=== PATIENT | male | born 1965 | race African-American/Black ===

== ENCOUNTER 2019-01-10 21:38 | Emergency (ER) | payer MEDICARE, MEDICAID ==
[2019-01-10 22:01] VITALS: BP 147/105
== END 2019-01-10 22:56 | disposition left against medical advice (07) ==
LOC: ER 21:38
DX: Z53.21 Procedure and treatment not carried out due to patient leaving prior to being seen by health care provider (principal)

== ENCOUNTER → 2019-01-24 | Outpatient (CLI) | payer MEDICARE, MEDICAID ==
--- NOTE | 2019-01-25 08:23 | XCELERA REPORT ---
[address] [address] Lower Extremity Arterial Evaluation Name: JOHNATHON CHINCHILLA Age: 54 yrs Gender: Male : 1965 Patient Status: Outpatient Patient Location: [facility] Study Date: 01/24/2019 01:12 PM Procedure: A color flow and duplex scan of the lower extremity arteries was performed bilaterally with velocity and waveform anaylsis. Ankle brachial indicies performed. Reason For Study: PVD Ordering Physician: MILLER SALINAS Performed By: Wilma Briceño Measurements and Calculations Right Left LEPIDOPTERIST PSV 135.3 95.5 cm/sec Prox PFA PSV -92.9 92.4 cm/sec Prox SFA PSV 132.7 58.5 cm/sec Mid SFA PSV -171.9 -77.6 cm/sec Dist SFA PSV -77.2 -157.1cm/sec Prox Pop A PSV 165.0 cm/sec Dist Pop A PSV -41.5 cm/sec Mid WANG PSV -26.1 -17.3 cm/sec Mid ABRADING MACHINE TENDER PSV 56.2 26.4 cm/sec Narciso Pedis PSV 35.2 30.2 cm/sec Right Side Arterial Evaluation Normal velocity and triphasic waveforms noted in the Common Femoral artery. Biphasic with normal velocity, spectral broadening in the Popliteal and to the Posterior Tibial, low velocity in the Anterior Tibial . Ankle Brachial index 1.5. Left Side Arterial Evaluation Normal velocity and triphasic waveforms noted in the Common Femoral artery. Biphasic with low velocity, spectral broadening in the Popliteal and to the Posterior Tibial, low velocity, monophasic in the Anterior Tibial . Ankle Brachial index 1.2. Interpretation Summary Moderate hemodynamically significant lesions in the bilateral lower extremities, on duplex imaging, at rest. No focal stenosis identified, suggestion of significant disease in the Femoral artey, sequentially in the Anterior Tibials, bilaterally. JULIA's are normal, suggesting no significant obstruction. This is discordant in comparison to the duplex findings, clinical correlation advised. : MILLER SALINAS > Robbie Hammond
== END ==
LOC: SP 12:56
PROVIDERS: ATTEND Podiatrist Primary Podiatric Medicine
DX: I73.9 Peripheral vascular disease, unspecified (principal)
CPT/HCPCS: 93925

== ENCOUNTER 2019-02-05 19:13 | Emergency (ER) | payer MEDICARE, MEDICAID ==
[2019-02-05] MEDS ORDERED: IPRATROPIUM/ALBUTEROL 0.5-2.5 MG/3 ML AMPUL NEB ONE (19:45)
--- NOTE | 2019-02-05 19:45 | ER Document Report ---
ED Medical Screen (RME) - General Chief Complaint: Chest Congestion Stated Complaint: EYE PAIN, CONGESTION AND PAIN Time Seen by Provider: 02/05/19 19:41 Primary Care Provider: MILLER SALINAS DPM [Primary Care Provider] - Follow up as needed TRAVEL OUTSIDE OF THE [place] IN LAST 30 DAYS: No - HPI Notes: 02/05/19 19:42 Patient is a 54-year-old male with a history of A. fib (on Eliquis), hypertension, end-stage renal disease and on dialysis every Wednesday/Wednesday/Wednesday (but had dialysis yesterday), tobacco abuse/current smoker who presents complaining of chest congestion and coughing up green sputum with chest tightness and intermittent chest pains. Patient states that the pain is primarily with cough. He is also had red watery eyes with matting. Patient states that his symptoms started over the last couple days. Patient has also noticed some fatigue and weakness. Denies BERRY, fever, neck pain, Abd pain, n/v/d, dysuria, back pain, or rash. I have treated and performed a rapid initial assessment of this patient. A comprehensive ED assessment and evaluation of the patient, analysis of test results and completion of medical decision making process will be conducted by additional ED providers. PHYSICAL EXAMINATION: GENERAL: Well-appearing, well-nourished and in no acute distress. A&Ox4. Answers questions appropriately. Eyes: Injected b/l with tearing noted LUNGS: Breath sounds clear to auscultation bilaterally and equal. No wheezes rales or rhonchi. HEART: Regular rate and rhythm Extremities: No cyanosis, clubbing, or edema b/l. NEUROLOGICAL: Normal speech, normal gait. PSYCH: Normal mood, normal affect. - Related Data Allergies/Adverse Reactions: Penicillins Allergy (Verified 02/05/19 19:20) pregabalin [From Lyrica] Allergy (Verified 02/05/19 19:20) Physical Exam - Vital signs Vitals: Temp Pulse Resp BP Pulse Ox 98.1 F 80 18 130/72 H 94 02/05/19 19:19 02/05/19 19:19 02/05/19 19:19 02/05/19 19:19 02/05/19 19:19 Course - Vital Signs Vital signs: Temp Pulse Resp BP Pulse Ox 98.1 F 80 18 130/72 H 94 02/05/19 19:19 02/05/19 19:19 02/05/19 19:19 02/05/19 19:19 02/05/19 19:19 Doctor's Discharge - Discharge Referrals: MILLER SALINAS DPM [Primary Care Provider] - Follow up as needed
--- NOTE | 2019-02-05 20:54 | EKG REPORT ---
SEVERITY:- ABNORMAL ECG - SINUS RHYTHM LEFT ANTERIOR FASCICULAR BLOCK BORDERLINE R WAVE PROGRESSION, ANTERIOR LEADS : Confirmed by: Velia Higgins MD 05-Feb-2019 20:53:46
--- NOTE | 2019-02-05 20:58 | RADIOLOGY REPORT (SQ) ---
EXAM DESCRIPTION: Chest x-ray PA and lateral CLINICAL HISTORY: 54 years Male, cough, CP COMPARISON: None. FINDINGS: Multiple stents in the right upper extremity and right upper chest venous system. Presumably related to a CLIN NURSE SPEC shunt. Borderline heart size. No suspicious mediastinal widening. Small left pleural effusion. Mild bilateral bronchial wall thickening. Suggestion of hyperinflation of the right lung seen on the frontal view overlapping the mediastinum. IMPRESSION: 1. Small left pleural effusion. Mild hyperinflation more obvious on the right. 2. Bronchial wall thickening. Suspicious for bronchitis. No obvious consolidation.
--- NOTE | 2019-02-06 00:42 | ER Document Report ---
ED Eye Complaint - General Chief Complaint: Chest Congestion Stated Complaint: EYE PAIN, CONGESTION AND PAIN Time Seen by Provider: 02/05/19 19:41 Primary Care Provider: MILLER SALINAS DPM [NO LOCAL MD] - Follow up as needed Mode of Arrival: Ambulatory Information source: Patient TRAVEL OUTSIDE OF THE [place] IN LAST 30 DAYS: No - HPI Patient complains to provider of: Patient complained of productive cough and eye redness. Onset: Other - Ongoing for the past 2 days. Eye location: Bilateral Injury: No Occurred at: Home Quality of pain: No pain Severity: None Pain Level: Denies Associated symptoms: Redness, Matting - Related Data Allergies/Adverse Reactions: Penicillins Allergy (Verified 02/05/19 19:20) pregabalin [From Lyrica] Allergy (Verified 02/05/19 19:20) Past Medical History - General Information source: Patient - Social History Smoking Status: Unknown if Ever Smoked Family History: Reviewed & Not Pertinent Review of Systems - Review of Systems Constitutional: No symptoms reported EENT: Eye discharge, Other - Bilateral eye redness. Cardiovascular: No symptoms reported Respiratory: Cough, Sputum - Yellow sputum. Gastrointestinal: No symptoms reported Genitourinary: No symptoms reported Male Genitourinary: No symptoms reported Musculoskeletal: No symptoms reported Skin: No symptoms reported Hematologic/Lymphatic: No symptoms reported Neurological/Psychological: No symptoms reported -: Yes All other systems reviewed and negative Physical Exam - Vital signs Vitals: Temp Pulse Resp BP Pulse Ox 98.1 F 80 18 130/72 H 94 02/05/19 19:19 02/05/19 19:19 02/05/19 19:19 02/05/19 19:19 02/05/19 19:19 Interpretation: Normal - General General appearance: Appears well, Alert In distress: None - HEENT Head: Normocephalic, Atraumatic Conjunctiva: Injected, Purulent discharge Cornea: Normal Eyelashes: Matted Pupils: PERRL - Respiratory Respiratory status: No respiratory distress Chest status: Nontender Breath sounds: Normal Chest palpation: Normal - Cardiovascular Rhythm: Regular Heart sounds: Normal auscultation Murmur: No - Abdominal Inspection: Normal Distension: No distension Bowel sounds: Normal Tenderness: Nontender Organomegaly: No organomegaly - Back Back: Normal, Nontender - Extremities General upper extremity: Normal inspection, Nontender, Normal color, Normal ROM, Normal temperature General lower extremity: Normal inspection, Nontender, Normal color, Normal ROM, Normal temperature, Normal weight bearing. No: Edgard's sign - Neurological Neuro grossly intact: Yes Cognition: Normal Orientation: AAOx4 [place] Coma Scale Eye Opening: Spontaneous [place] Coma Scale Verbal: Oriented [place] Coma Scale Motor: Obeys Commands [place] Coma Scale Total: 15 Speech: Normal Motor strength normal: LUE, RUE, LLE, RLE Sensory: Normal - Psychological Associated symptoms: Normal affect, Normal mood - Skin Skin Temperature: Warm Skin Moisture: Dry Skin Color: Normal Course - Re-evaluation Re-evalutation: 02/06/19 02:39 Patient refused blood work on further evaluation in the emergency room. He said he is only here to get eyedrops for his eye infection. He does not want any further evaluation in the ER. He left AGAINST MEDICAL ADVICE but refused to sign the form. Patient is medically stable at this time. I encouraged him to stay and get full medical evaluation but he refused and requested for eyedrops. I told him he is welcome to come back to the ED if he changes his mind. Patient is alert and oriented x4 and he has a medical decision making capacity. He left the emergency room in stable medical condition. - Vital Signs Vital signs: Temp Pulse Resp BP Pulse Ox 98.4 F 76 16 151/64 H 100 02/06/19 00:51 02/06/19 00:51 02/06/19 00:51 02/06/19 00:51 02/06/19 00:51 - Diagnostic Test Radiology reviewed: Reports reviewed Radiology results interpreted by md: 02/06/19 00:44 Chest x-ray showed bronchitis and small left pleural effusion. - EKG Interpretation by Nh EKG shows normal: Sinus rhythm Rate: Normal Rhythm: NSR [place]/QRS: LAHB/LAFB When compared to previous EKG there are: Previous EKG unavailable Additional EKG results interpreted by md: 02/06/19 00:45 Q waves in the anterior leads. No STEMI. Discharge - Discharge Clinical Impression: Bacterial conjunctivitis of both eyes, Pleural effusion, left Bilateral conjunctivitis Qualifiers: Conjunctivitis type: acute Acute conjunctivitis type: bacterial Qualified Code(s): H10.33 - Unspecified acute conjunctivitis, bilateral Acute bronchitis Qualifiers: Bronchitis organism: unspecified organism Qualified Code(s): J20.9 - Acute bronchitis, unspecified Condition: Stable Disposition: AGAINST MEDICAL ADVICE Instructions: Bronchitis ([facility]), Conjunctivitis ([facility]) Additional Instructions: Please return to the ED for complete evaluation of your medical problem whenever you decide to do so. You are leaving the ED emergency room AGAINST MEDICAL ADVICE. Prescriptions: Azithromycin [Zithromax 250 mg Tablet] 500 mg PO DAILY #6 tab Ofloxacin [Ocuflox] 2 drop OU QID 5 Days #10 ml Referrals: MILLER SALINAS DPM [NO LOCAL MD] - Follow up as needed
[2019-02-06 00:52] VITALS: BP 151/64
== END 2019-02-06 00:50 | disposition left against medical advice (07) ==
LOC: ER 19:13
DX: J90 Pleural effusion, not elsewhere classified (principal); J20.9 Acute bronchitis, unspecified; H10.33 Unspecified acute conjunctivitis, bilateral; B96.89 Other specified bacterial agents as the cause of diseases classified elsewhere; R09.89 Other specified symptoms and signs involving the circulatory and respiratory systems; H57.13 Ocular pain, bilateral
CPT/HCPCS: 71046; 93005; 93010; 99283

== ENCOUNTER 2019-02-15 19:22 | Emergency (ER) | payer MEDICARE, MEDICAID ==
--- NOTE | 2019-02-15 20:05 | ER Document Report ---
ED Cardiac - General Chief Complaint: Irregular Pulse Stated Complaint: WEAKNESS Time Seen by Provider: 02/15/19 19:54 TRAVEL OUTSIDE OF THE [place] IN LAST 30 DAYS: No - HPI Notes: Patient is a 54-year-old male that presents to the emergency department for chief complaint of atrial fibrillation. Patient reports history of paroxysmal atrial fibrillation and is currently taking Eliquis. Patient states he was on dialysis at [facility] and had about 20 minutes left of his treatment when he began to have palpitations. He states he felt diaphoretic. This felt identical to previous episodes of atrial fibrill ation. EMS was called by [facility]. EMS administered a 20 mg bolus of IV Cardizem which cardioverted him back to normal sinus rhythm. Patient states he has been asymptomatic since his heart rate returned to normal. He denies any chest pain. He states this has occurred less often since being started on amiodarone but he is very familiar with A. fib RVR spells and this felt the same. He is currently requesting to be discharged. Past Medical History: Atrial fibrillation, end-stage renal disease Past Surgical History: Right upper extremity dialysis fistula Social History: Reviewed in chart Family History: Reviewed and noncontributory for presenting illness Allergies: Reviewed, see documented allergy list. REVIEW OF SYSTEMS: CONSTITUTIONAL : No fever No chills diaphoresis No recent illness EENT: No vision changes No congestion No sore throat CARDIOVASCULAR: No chest pain palpitations RESPIRATORY: No shortness of breath No cough No difficulty breathing GASTROINTESTINAL: No abdominal pain No nausea No vomiting No diarrhea GENITOURINARY: No dysuria No hematuria No difficulty urinating MUSCULOSKELETAL: No back pain No leg pain No arm pain SKIN: No rashes No lesions LYMPHATIC: No swollen, enlarged glands. NEUROLOGICAL: No lightheadedness No headache No weakness No paresthesias PSYCHIATRIC: No anxiety No depression PHYSICAL EXAMINATION: Vital signs reviewed, nursing noted reviewed. GENERAL: Well-appearing, well-nourished and in no acute distress. HEAD: Atraumatic, normocephalic. EYES: Eyes appear normal, extraocular movements intact, sclera anicteric, conjunctiva are normal. ENT: nares patent, oropharynx clear without exudates. Moist mucous membranes. NECK: Normal range of motion, supple without lymphadenopathy LUNGS: Breath sounds clear to auscultation bilaterally and equal. No wheezes rales or rhonchi. HEART: Regular rate and rhythm without murmurs ABDOMEN: Protuberant, soft, nontender, normoactive bowel sounds. No rebound, guarding, or rigidity. No masses appreciated. EXTREMITIES: Proximal right upper extremity AV fistula with good bruit and thrill, no bleeding. Nontender, good range of motion, no pitting or edema. NEUROLOGICAL: No focal neurological deficits. Moves all extremities spontaneously Motor and sensory grossly intact on exam. PSYCH: Normal mood, normal affect. SKIN: Warm, Dry, normal turgor, no rashes or lesions noted on exposed skin - Related Data Allergies/Adverse Reactions: Penicillins Allergy (Verified 02/05/19 19:20) pregabalin [From Lyrica] Allergy (Verified 02/05/19 19:20) Past Medical History - Social History Smoking Status: Current Every Day Smoker Frequency of alcohol use: None Drug Abuse: None Family History: Reviewed & Not Pertinent Patient has suicidal ideation: No Patient has homicidal ideation: No - Past Medical History Cardiac Medical History: Reports: Hx Atrial Fibrillation, Hx Hypertension Endocrine Medical History: Reports: Hx Diabetes Mellitus Type 2 Renal/ Medical History: Reports: Hx Peritoneal Dialysis Past Surgical History: Reports: Hx Cholecystectomy Physical Exam - Vital signs Vitals: Temp Pulse Resp BP Pulse Ox 98.3 F 69 15 136/83 H 94 02/15/19 19:32 02/15/19 19:32 02/15/19 19:32 02/15/19 19:32 02/15/19 19:32 Course - Re-evaluation Re-evalutation: 02/15/19 20:05 Vitals reviewed. Nursing notes reviewed. Patient is currently asymptomatic. He was cardioverted by EMS prior to arrival in the emergency room. He is anticoagulated on Eliquis and has amiodarone for rate control at home. Patient states the episode today felt exactly like his previous episodes. He is otherwise well-appearing. 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 Song for follow-up. He was counseled on returning to the emergency room if his symptoms return. Patient completed most of his dialysis treatment today and is not requiring further work-up in the ED. He is requesting to be discharged now and I feel this is an appropriate plan of action. He is stable at discharge. - Vital Signs Vital signs: Temp Pulse Resp BP Pulse Ox 98.3 F 69 15 136/83 H 94 02/15/19 19:32 02/15/19 19:32 02/15/19 19:32 02/15/19 19:32 02/15/19 19:32 - EKG Interpretation by Me Additional EKG results interpreted by me: 02/15/19 20:06 Interpreted by myself 1933: Normal sinus rhythm, rate of ND, left axis, LVH, no ectopy, no STEMI Discharge - Discharge Clinical Impression: Paroxysmal atrial fibrillation Condition: Stable Disposition: HOME, SELF-CARE Instructions: Atrial Fibrillation ([facility]) Additional Instructions: Please return to the emergency department if you have any worsening, or concern of your symptoms. Please return to the emergency department if you develop chest pain, difficulty breathing, severe abdominal pain, or ongoing vomiting. Please follow-up with your primary care physician in 2-3 days and any other recommended physicians. If prescribed, take all medications as directed. If you have any questions or concerns do not hesitate to return the emergency department for evaluation. Return to the emergency room if your heart rate elevates again Referrals: VALENTIN SONG MD [ACTIVE STAFF] - Follow up as needed
[2019-02-15 20:06] VITALS: BP 134/75
--- NOTE | 2019-02-16 00:07 | EKG REPORT ---
SEVERITY:- ABNORMAL ECG - SINUS RHYTHM NONSPECIFIC IVCD WITH LAD LEFT VENTRICULAR HYPERTROPHY : Confirmed by: Lindsay Johnston 16-Feb-2019 00:06:22
== END 2019-02-15 20:20 | disposition home or self-care (01) ==
LOC: ER 19:22
DX: I48.0 Paroxysmal atrial fibrillation (principal); Z79.02 Long term (current) use of antithrombotics/antiplatelets; Z79.899 Other long term (current) drug therapy; R61 Generalized hyperhidrosis; R00.2 Palpitations; I12.0 Hypertensive chronic kidney disease with stage 5 chronic kidney disease or end stage renal disease; N18.6 End stage renal disease; E11.22 Type 2 diabetes mellitus with diabetic chronic kidney disease; Z99.2 Dependence on renal dialysis; F17.200 Nicotine dependence, unspecified, uncomplicated; Z88.0 Allergy status to penicillin; Z88.6 Allergy status to analgesic agent
CPT/HCPCS: 82962; 93005; 93010; 99285

== ENCOUNTER 2019-04-19 20:31 | Emergency (ER) | payer MEDICARE, MEDICAID ==
--- NOTE | 2019-04-19 21:17 | ER Document Report ---
ED General - General Chief Complaint: General Weakness Stated Complaint: WEAKNESS Time Seen by Provider: 04/19/19 20:48 TRAVEL OUTSIDE OF THE [place] IN LAST 30 DAYS: No - HPI Notes: Note history is limited as the patient is belligerent immediately on my entering the room and refusing to answer most of my questions. 54-year-old male who states he has a history of atrial fibrillation, was transferred from dialysis when he developed rapid onset of a tachycardia in the 150s. Patient is brought by EMS, noted to be transiently hypotensive, they were unable to obtain IV access. Patient himself demands over and over that I immediately give him adenosine is that is what they have "given in before". When I try and introduce myself and obtain basic history and performed exam he comes hostile and refuses to answer my questions. Ultimately, the information I can gather states that he had rapid onset of this, has a history of A. fib, takes Eliquis, denies any chest pain. Remainder of history is limited by patient clinical condition. - Related Data Allergies/Adverse Reactions: Penicillins Allergy (Verified 02/05/19 19:20) pregabalin [From Lyrica] Allergy (Verified 02/05/19 19:20) Past Medical History - Social History Smoking Status: Unknown if Ever Smoked Family History: Reviewed & Not Pertinent Patient has suicidal ideation: No Patient has homicidal ideation: No - Past Medical History Cardiac Medical History: Reports: Hx Atrial Fibrillation, Hx Hypertension Endocrine Medical History: Reports: Hx Diabetes Mellitus Type 2 Renal/ Medical History: Reports: Hx Peritoneal Dialysis Past Surgical History: Reports: Hx Cholecystectomy Review of Systems - Review of Systems Notes: ROS clinical condition Physical Exam - Vital signs Vitals: Resp Pulse Ox 18 90 L 04/19/19 20:40 04/19/19 20:40 - Notes Notes: General: Well devloped, no acute distress. HEENT: Normocephalic, atraumatic. Pupils equal round reactive to light. Mucosa moist. No JVD. Chest: No trauma, normal excursion. Respiratory: Good air exchange, normal excursion. Cardiac: Regular rhythm, tachycardic Abdomen: Soft, benign. Nondistended. Back: No asymmetry or gross abnormality. Motor: Grossly normal power and tone. Neurologic: Alert, nonfocal. Vascular: Well perfused Skin: No petechiae or purpura Course - Re-evaluation Re-evalutation: 04/19/19 21:35 54-year-old male presents with the after mentioned symptoms. I tried at length to engage the patient in conversation, history, have appealed him in several ways to allow me to obtain a basic history and exam so I can move forward with treatment. He has however adamantly refused, continues to demand adenosine which I have again indicated to him I must at least obtain some basic history and examined him before I give him a medication. He has now demanded to be discharged, will leave AGAINST MEDICAL ADVICE. He refuses to allow me to examine him further. The patient himself appears appropriate, alert, cogent and cognizant, does not appear to be under the influence of any substances and has a systolic of 97 and is perfusing. It is his right to leave, I have indicated he can return at any time to continue his work-up, I have explained to him in very simple terms that he runs a risk of or permanent disability if he leaves. - Vital Signs Vital signs: Temp Pulse Resp BP Pulse Ox 18 90 L 04/19/19 20:40 04/19/19 20:40 - Laboratory Result Diagrams: 04/19/19 20:40 04/19/19 20:40 Laboratory results interpreted by me: 04/19/19 20:40 Hgb 12.0 L MCH 26.1 L MCHC 31.4 L RDW 16.9 H Plt Count 148 L Lymph % (Auto) 45.4 H Seg Neutrophils % 41.8 L - EKG Interpretation by Me EKG shows normal: [place], QRS Complexes - Narrow complex tachycardia 150, nonspecific changes, consistent with 2-1 atrial flutter versus SVT Discharge - Discharge Clinical Impression: Tachycardia Condition: Good Disposition: AGAINST MEDICAL ADVICE
[2019-04-19 21:23] LABS: ABSOLUTE EOSINOPHILS # (AUTO) 0.1 10^3/uL (0.0-0.6); ABSOLUTE LYMPHOCYTES (AUTO) 1.9 10^3/uL (0.5-4.7); ABSOLUTE MONOCYTES (AUTO) 0.4 10^3/uL (0.1-1.4); ABSOLUTE NEUT (AUTO) 1.8 10^3/uL (1.7-8.2); BASOPHILS % (AUTO) 0.9 % (0-2); EOSINOPHILS % (AUTO) 2.6 % (0-6); HEMATOCRIT 38.1 % (37.9-51.0); LYMPHOCYTES % (AUTO) 45.4 % (13-45); MEAN CORPUSCULAR HEMOGLOBIN 26.1 pg (27.0-33.4); MEAN CORPUSCULAR HGB CONC 31.4 g/dL (32.0-36.0); MEAN CORPUSCULAR VOLUME 83 fl (80-97); MONOCYTES % (AUTO) 9.3 % (3-13); PLATELET COUNT 148 10^3/uL (150-450); RED BLOOD COUNT 4.59 10^6/uL (4.35-5.55); RED CELL DISTRIBUTION WIDTH 16.9 % (11.5-14.0); SEGMENTED NEUTROPHILS % (AUTO) 41.8 % (42-78); TOTAL CELLS COUNTED % (AUTO) 100 %; WHITE BLOOD COUNT 4.3 10^3/uL (4.0-10.5)
[2019-04-19 21:38] LABS: ALBUMIN 3.8 g/dL (3.5-5.0); ALKALINE PHOSPHATASE 81 U/L (38-126); ANION GAP 9 (5-19); ASPARTATE AMINO TRANSFERASE 21 U/L (17-59); BILIRUBIN,DIRECT 0.6 mg/dL (0.0-0.4); BILIRUBIN,TOTAL 0.8 mg/dL (0.2-1.3); BLOOD UREA NITROGEN 25 mg/dL (7-20); CALCIUM 8.6 mg/dL (8.4-10.2); CARBON DIOXIDE 30 mmol/L (22-30); CHLORIDE 95 mmol/L (98-107); CREATINE KINASE 64 U/L (55-170); POTASSIUM 4.6 mmol/L (3.6-5.0); TOTAL PROTEIN 6.8 g/dL (6.3-8.2)
[2019-04-19 21:48] LABS: GLUCOSE 46 mg/dL (75-110)
[2019-04-19 21:50] LABS: CREATINE KINASE MB 1.3 ng/mL (<4.55); TROPONIN I 0.018 ng/mL
== END 2019-04-19 21:09 | disposition left against medical advice (07) ==
LOC: ER 20:31
DX: R00.0 Tachycardia, unspecified (principal); R53.1 Weakness; I48.91 Unspecified atrial fibrillation; Z79.01 Long term (current) use of anticoagulants
CPT/HCPCS: 36415; 80053; 82550; 82553; 84484; 85025; 99285

== ENCOUNTER → 2019-05-15 | Outpatient (CLI) | payer MEDICARE, MEDICAID ==
[2019-05-16 08:37] LABS: HEPATITS B SURFACE ANTIGEN Negative (Negative)
[2019-05-16 09:34] LABS: HEPATITIS C VIRUS ANTIBODY <0.1 s/co ratio (0.0-0.9)
== END ==
LOC: OD 11:57
PROVIDERS: ATTEND Physician Assistant Medical
DX: L40.0 Psoriasis vulgaris (principal); Z79.899 Other long term (current) drug therapy
CPT/HCPCS: 36415; 80074

== ENCOUNTER → 2020-08-07 | Outpatient (CLI) | payer MEDICARE, MEDICAID ==
[2020-08-07 14:05] LABS: INTERNATIONAL RATION (INR) 1.67; PROTHROMBIN TIME 19.9 SEC (11.4-15.4)
== END ==
LOC: OD 11:41
PROVIDERS: ATTEND Internal Medicine
DX: I48.21 Permanent atrial fibrillation (principal); N18.6 End stage renal disease; I26.99 Other pulmonary embolism without acute cor pulmonale
CPT/HCPCS: 36415; 85610